=== PATIENT | male | born 1975 | race Caucasian/White ===

== ENCOUNTER 2016-11-06 15:52 | Emergency (ER) | payer OTHER ==
[~2016-11-06] VITALS: Ht 172.7 cm; Wt 130.0 kg
[~2016-11-06 15:52] MED LIST: ARIP1TAB12; BACL10TA; BUPR150XL PO; DICL1GEL; FENT50DI T-DERMAL; HALO10 PO; HYDR-3535 PO; IBUP800T23 PO; IPRAAER IN; IPRAAER NEB; LORA1TAB PO; MONT10 PO; NIAC250C6 PO; PIOG15TA9 PO; PRAV20 PO; ST J PO; TOPA50TA6; TRAZ150T75 PO; VITA500015 PO
[2016-11-06 15:53] VITALS: BP 123/71; PULSE 92; RESP 15; TEMP 98.4; O2SAT 98
--- NOTE | 2016-11-06 16:01 | PD ---
Physical Exam Time Seen by Provider: 15:59 Narrative 41 y/o male presents with 1.5 weeks lower back gamble. Self-reports hx of " bulging discs." Denies recent injury. Vital signs reviewed. Seen at triage desk. Awaiting bed placement. Data Data Last Documented VS Vital Signs Date Time Temp Pulse Resp B/P Pulse Ox O2 Delivery O2 Flow Rate FiO2 11/06/16 15:53 98.4 92 15 123/71 98 MDM Medical Record Reviewed: Yes Supervised Visit with BARBARA: Madi Conteh Nov 06, 2016 16:00
[2016-11-06] MEDS ORDERED: ARIP1TAB5 PO (17:25)
[2016-11-06] MEDS ORDERED: HALO5P (17:25)
[2016-11-06] MEDS ORDERED: METF500T PO (17:25)
[2016-11-06] MEDS ORDERED: BUPR150CR PO (17:25)
[2016-11-06] MEDS ORDERED: ORPHENADRINE INJ 60 MG/2 ML AMP IM ONE (17:45)
[2016-11-06] MEDS ORDERED: KETOROLAC TROMETHAMINE 60 MG/2 ML (IM) VIAL IM ONE (17:45)
[2016-11-06] MEDS ORDERED: ACETAMINOPHEN/HYDROcodone 325 MG/7.5 MG TAB PO ONE (17:45)
--- NOTE | 2016-11-06 17:57 | PD ---
HPI Chief Complaint: Back/ Neck Pain or Injury Time Seen by Provider: 17:54 Travel History International Travel<30 days: No Contact w/Intl Traveler<30days: No Traveled to known affect area: No History of Present Illness HPI 41 YO M with PMH of herniated lumbar disks presents to the ED for evaluation with 3 day history of low back pain, radiating to the left buttock and coursing along the lateral aspect of the left leg to the knee. Patient denies numbness, tingling, weakness, limitations to range of motion of the extremities. He denies saddle anesthesia or incontinence. He states that the back pain is his "normal pain" but the sciatic component is new. Patient was under the care of Dr. Kearney, pain management but dismissed from his practice per note that the patient provides. PFSH Past Medical History Bipolar Disorder: Yes Depression: Yes High Cholesterol: Yes COPD: Yes Diabetes: Yes Patient Takes Glucophage: Yes Diminished Hearing: No GERD: Yes Hypertension: Yes Psychiatric: Yes (BIPOLAR AFFECTIVE DISORDER) Reproductive: Yes (SLEEP APNEA) Respiratory: Yes (COPD) Schizophrenia: Yes Sleep Apnea: Yes Tetanus Vaccination: < 5 Years Influenza Vaccination: Yes Past Surgical History Surgical History: No Previous Surgery Oral Surgery: Yes Social History Alcohol Use: Yes (OCCAS. BEER) Tobacco Use: Yes (4 cigars daily) Substance Use: No Allergies-Medications (Allergen,Severity, Reaction): Coded Allergies: No Known Allergies (Unverified , 11/06/16) Reported Meds & Prescriptions Reported Meds & Active Scripts Active Flexeril (Cyclobenzaprine HCl) 10 Mg Tab 10 Mg PO TID Ibuprofen 800 Mg Tab 800 Mg PO Q8H Reported Haldol Inj (Haloperidol Lactate) 5 Mg/Ml Inj 10 Mg Metformin (Metformin HCl) 500 Mg Tab 500 Mg PO DAILY With a meal Wellbutrin SR 12 HR (Bupropion HCl) 150 Mg Tab 150 Mg PO Q12HR Abilify (Aripiprazole) 10 Mg Tab 10 Mg PO DAILY Review of Systems Except as stated in HPI: all other systems reviewed are Neg Physical Exam Narrative GENERAL: Well-nourished, well-developed obese white male in no acute distress. SKIN: Focused skin assessment warm/dry. HEAD: Normocephalic. EYES: No scleral icterus. No injection or drainage. NECK: Supple, trachea midline. No JVD or lymphadenopathy. CARDIOVASCULAR: Regular rate and rhythm without murmurs, gallops, or rubs. RESPIRATORY: Breath sounds equal bilaterally. No accessory muscle use. GASTROINTESTINAL: Abdomen soft, non-tender, nondistended. MUSCULOSKELETAL: No cyanosis, or edema. 5/5 strength of dorsiflexion, plantar flexion, hip flexion in bilateral lower extremities. Straight leg raise positive on the left. BACK: No obvious deformity. No CVA tenderness. ++ Tenderness to palpation of the paraspinal musculature in the left lumbar area, continuing to the sciatic notch. ++ Mild midline tenderness to palpation in the lumbar spine. Data Data Last Documented VS Vital Signs Date Time Temp Pulse Resp B/P Pulse Ox O2 Delivery O2 Flow Rate FiO2 11/06/16 15:53 98.4 92 15 123/71 98 Orders Ketorolac Inj (Toradol Inj) (11/06/16 17:45) Orphenadrine Inj (Norflex Inj) (11/06/16 17:45) Acetamin-Hydrocod 325-7.5 Mg ([place] 7.5 (11/06/16 17:45) MDM Medical Decision Making Medical Screen Exam Complete: Yes Emergency Medical Condition: Yes Differential Diagnosis acute on chronic back pain versus sciatica versus musculoskeletal pain versus muscle strain versus drug seeking behavior versus other Narrative Course 41 YO M with PMH of herniated lumbar disks presents to the ED for evaluation with 3 day history of low back pain, radiating to the left buttock and coursing along the lateral aspect of the left leg to the knee. Patient denies numbness, tingling, weakness, limitations to range of motion of the extremities. He denies saddle anesthesia or incontinence. He states that the back pain is his "normal pain" but the sciatic component is new. Patient was under the care of Dr. Kearney, pain management but dismissed from his practice per note that the patient provides. Vitals reviewed. Physical exam reveals an obese white male in no acute distress. There is mild tenderness to palpation in the midline of the low lumbar area as well as the left-sided paraspinal musculature which extends to the sciatic notch. No strength deficits in the lower extremities. Neurovascularly intact. Patient was administered IM Toradol and Norflex and a by mouth 7.5 Lortab. Review of the ORCSE reveals that the patient was receiving medications from multiple providers until 10/05. He calls me back in the room to repeatedly requests narcotic pain medication prescription. I explained to the patient that I would not be providing any narcotic pain prescriptions today and he should seek treatment from his outpatient providers. He is stable and discharged home. Diagnosis Primary Impression: Chronic low back pain Qualified Code: M54.42 - Chronic midline low back pain with left-sided sciatica Additional Impression: Left sided sciatica Referrals: Neurologist Pain Management Patient Instructions: Acute Low Back Pain (ED), General Instructions, Sciatica (ED) Additional Instructions: Rest, hydrate Return to normal, gentle activity as tolerated. A mixture of rest and activity is best for back pain. Take medications as prescribed. Do not drive while taking muscle relaxants. Follow-up with pain management or neurology. Return to the ED for any urgent or emergent medical condition. Med/Other Pt SpecificInfo: Prescription(s) given Scripts Cyclobenzaprine (Flexeril)10 Mg Tab10 Mg PO TID #21 TAB Ref 0 Prov:Naun Mcneil MD 11/06/16 Ibuprofen 800 Mg [id number] Mg PO Q8H #21 TAB Ref 0 Prov:Naun Mcneil MD 11/06/16 Disposition: 01 DISCHARGE HOME Condition: Stable Nichelle Fontana Nov 06, 2016 17:57
[2016-11-06] MEDS ORDERED: IBUP800T23 PO (18:15)
[2016-11-06] MEDS ORDERED: CYCL1TAB29 PO (18:15)
== END 2016-11-06 18:33 | disposition home or self-care (01) ==
LOC: NEPK 15:52
DX: M54.42 Lumbago with sciatica, left side (principal); G89.29 Other chronic pain; E11.9 Type 2 diabetes mellitus without complications; I10 Essential (primary) hypertension; E78.00 Pure hypercholesterolemia, unspecified; G47.30 Sleep apnea, unspecified; Z72.0 Tobacco use; Z79.84 Long term (current) use of oral hypoglycemic drugs; Z87.39 Personal history of other diseases of the musculoskeletal system and connective tissue; Z86.59 Personal history of other mental and behavioral disorders; Z87.09 Personal history of other diseases of the respiratory system; Z87.19 Personal history of other diseases of the digestive system
CPT/HCPCS: 96372; 99284; J1885; J2360

== ENCOUNTER 2016-11-12 17:17 | Emergency (ER) | payer OTHER ==
[~2016-11-12] VITALS: Ht 172.7 cm; Wt 132.0 kg
[~2016-11-12 17:17] MED LIST changes: -ARIP1TAB12; +ARIP1TAB5 PO; -BACL10TA; +BUPR150CR PO; -BUPR150XL PO; +CYCL1TAB29 PO; -DICL1GEL; -FENT50DI T-DERMAL; -HALO10 PO; +HALO5P; -HYDR-3535 PO; -IPRAAER IN; -IPRAAER NEB; -LORA1TAB PO; +METF500T PO; -MONT10 PO; -NIAC250C6 PO; -PIOG15TA9 PO; -PRAV20 PO; -ST J PO; -TOPA50TA6; -TRAZ150T75 PO; -VITA500015 PO
[2016-11-12 17:23] VITALS: BP 118/67; PULSE 96; RESP 20; TEMP 98.6; O2SAT 97
[2016-11-12] MEDS ORDERED: LIDO1PAD52 TOPICAL (17:54)
[2016-11-12] MEDS ORDERED: CYCL5TAB PO (17:54)
[2016-11-12] MEDS ORDERED: IBUP800T23 PO (17:54)
--- NOTE | 2016-11-12 18:00 | PD ---
HPI Chief Complaint: Musculoskeletal Complaint Time Seen by Provider: 17:30 Travel History International Travel<30 days: No Contact w/Intl Traveler<30days: No Traveled to known affect area: No History of Present Illness HPI 41-year-old male with history of chronic low back pain presents to the emergency room for evaluation of the same. He denies any new trauma or injury. Patient has had chronic low back pain for the past 5 years from a bulging disc. States he recently stopped following with his pain management physician, Dr. Kearney. 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 Pain is radiating down the left lower extremity. Patient came to the emergency room one week ago for the same and was given prescription for Flexeril and ibuprofen. He has not followed up with anyone. States he is out of his Flexeril. Denies upper or lower extremity paresthesias, saddle anesthesia, loss of bowel or bladder control, weight loss, fever, chills, night sweats, and IV drug use. History of diabetes. PFSH Past Medical History Bipolar Disorder: Yes Depression: Yes High Cholesterol: Yes COPD: Yes Diabetes: Yes (type 2) Patient Takes Glucophage: Yes Diminished Hearing: No GERD: Yes Hypertension: Yes Psychiatric: Yes (BIPOLAR AFFECTIVE DISORDER) Reproductive: Yes (SLEEP APNEA) Respiratory: Yes (COPD) Schizophrenia: Yes Sleep Apnea: Yes Tetanus Vaccination: < 5 Years Influenza Vaccination: Yes ?: Not Past Surgical History Oral Surgery: Yes Social History Alcohol Use: Yes (OCCAS. BEER) Tobacco Use: Yes (4 cigars daily) Substance Use: No Allergies-Medications (Allergen,Severity, Reaction): Coded Allergies: No Known Allergies (Unverified , 11/12/16) Reported Meds & Prescriptions Reported Meds & Active Scripts Active Lidocaine Patch 12 HR (Lidocaine) 5 % Patch 1 Patch TOPICAL DAILY PRN Remove patch after 12 hours Flexeril (Cyclobenzaprine HCl) 5 Mg Tab 5 Mg PO TID Ibuprofen 800 Mg Tab 800 Mg PO Q8H Reported Haldol Inj (Haloperidol Lactate) 5 Mg/Ml Inj 10 Mg Metformin (Metformin HCl) 500 Mg Tab 500 Mg PO DAILY With a meal Wellbutrin SR 12 HR (Bupropion HCl) 150 Mg Tab 150 Mg PO Q12HR Abilify (Aripiprazole) 10 Mg Tab 10 Mg PO DAILY Review of Systems Except as stated in HPI: all other systems reviewed are Neg Physical Exam Narrative GENERAL: Well-nourished, well-developed male in no acute distress. Afebrile. Ambulatory. SKIN: Focused skin assessment warm/dry. No erythema or ecchymosis. HEAD: Normocephalic. EYES: No scleral icterus. No injection or drainage. NECK: Supple, trachea midline. No JVD or lymphadenopathy. CARDIOVASCULAR: Regular rate and rhythm without murmurs, gallops, or rubs. RESPIRATORY: Breath sounds equal bilaterally. No accessory muscle use. BACK: Nontender without obvious deformity. No CVA tenderness. 2+ patellar and Achilles reflexes are equal bilaterally. Data Data Last Documented VS Vital Signs Date Time Temp Pulse Resp B/P Pulse Ox O2 Delivery O2 Flow Rate FiO2 11/12/16 17:23 98.6 96 20 118/67 97 MDM Medical Decision Making Medical Screen Exam Complete: Yes Emergency Medical Condition: Yes Medical Record Reviewed: Yes Differential Diagnosis Chronic low back pain, sciatica, muscle spasm Narrative Course 41-year-old male with history of chronic low back pain presents to the emergency room for evaluation of the same. Patient bent over 1 week ago to lift something off the ground and developed worsening symptoms. No focal neurological deficits. No midline tenderness. No red flag symptoms. No indication for emergent imaging at this time. Patient was informed it is against emergency room policy to prescribe narcotic pain medications for chronic back pain. He was instructed to follow up with his primary care physician for further to pain management. He will be discharged with prescriptions for ibuprofen, Flexeril, and lidocaine patches. Told to return for worsening symptoms. He understands and agrees to plan. Diagnosis Primary Impression: Chronic low back pain Qualified Code: M54.42 - Chronic left-sided low back pain with left-sided sciatica Referrals: Primary Care Physician Patient Instructions: Chronic Back Pain (ED), General Instructions Additional Instructions: Rest and drink plenty of fluids. Take Flexeril as directed, as needed for pain. Take ibuprofen with food as directed, as needed for pain. Apply lidocaine patches as directed. Follow-up with a primary care physician. Return to the emergency room for worsening symptoms. Med/Other Pt SpecificInfo: Prescription(s) given Scripts Lidocaine Patch 12 HR 5 % Patch1 Patch TOPICAL DAILY PRN (PAIN) #1 BOX Ref 0 Remove patch after 12 hours Prov:Faizan Mays MD 11/12/16 Cyclobenzaprine (Flexeril)5 Mg Tab5 Mg PO TID #20 TAB Ref 0 Prov:Fazian Mays MD 11/12/16 Ibuprofen 800 Mg [id number] Mg PO Q8H #21 TAB Ref 0 Prov:Faizan Mays MD 11/12/16 Disposition: 01 DISCHARGE HOME Condition: Stable Madison Coffman Nov 12, 2016 18:00
== END 2016-11-12 18:08 | disposition home or self-care (01) ==
LOC: PHED 17:17
DX: M54.42 Lumbago with sciatica, left side (principal); Z72.0 Tobacco use
CPT/HCPCS: 99283

== ENCOUNTER 2016-12-21 10:57 | Emergency (ER) | payer OTHER ==
[~2016-12-21] VITALS: Ht 172.7 cm; Wt 140.0 kg
[~2016-12-21 10:57] MED LIST changes: -CYCL1TAB29 PO; +CYCL5TAB PO; +LIDO1PAD52 TOPICAL
[2016-12-21 11:02] VITALS: BP 117/70; PULSE 100; RESP 20; TEMP 97.8; O2SAT 98
[2016-12-21] MEDS ORDERED: NAPR500 PO (11:18)
[2016-12-21] MEDS ORDERED: CYCL1TAB29 PO (11:18)
--- NOTE | 2016-12-21 11:21 | PD ---
HPI Chief Complaint: Back/ Neck Pain or Injury Time Seen by Provider: 11:16 Travel History International Travel<30 days: No Contact w/Intl Traveler<30days: No Traveled to known affect area: No History of Present Illness HPI Patient comes in complaining of left low back pain began 2 days ago after lifting heavy furniture. Pain radiates into his left hip. Patient did taking ibuprofen with minimal relief. Pain is worse with certain movement. Denies any numbness or tingling, trauma, loss or change in bladder, abdominal pain, or IV drug abuse. Severity mild. PFSH Past Medical History Bipolar Disorder: Yes Depression: Yes High Cholesterol: Yes COPD: Yes Diabetes: Yes (type 2) Diminished Hearing: No GERD: Yes Hypertension: Yes Psychiatric: Yes (BIPOLAR AFFECTIVE DISORDER) Reproductive: Yes (SLEEP APNEA) Respiratory: Yes (COPD) Schizophrenia: Yes Sleep Apnea: Yes Past Surgical History Oral Surgery: Yes Social History Alcohol Use: Yes (OCCAS. BEER) Tobacco Use: Yes (4 cigars daily) Substance Use: No Allergies-Medications (Allergen,Severity, Reaction): Coded Allergies: No Known Allergies (Unverified , 11/12/16) Reported Meds & Prescriptions Reported Meds & Active Scripts Active Naprosyn (Naproxen) 500 Mg Tab 500 Mg PO Q12HR Flexeril (Cyclobenzaprine HCl) 10 Mg Tab 10 Mg PO Q8HR PRN Lidocaine Patch 12 HR (Lidocaine) 5 % Patch 1 Patch TOPICAL DAILY PRN Remove patch after 12 hours Flexeril (Cyclobenzaprine HCl) 5 Mg Tab 5 Mg PO TID Ibuprofen 800 Mg Tab 800 Mg PO Q8H Reported Haldol Inj (Haloperidol Lactate) 5 Mg/Ml Inj 10 Mg Metformin (Metformin HCl) 500 Mg Tab 500 Mg PO DAILY With a meal Wellbutrin SR 12 HR (Bupropion HCl) 150 Mg Tab 150 Mg PO Q12HR Abilify (Aripiprazole) 10 Mg Tab 10 Mg PO DAILY Review of Systems Except as stated in HPI: all other systems reviewed are Neg Physical Exam Narrative GENERAL: Well-developed, overly nourished, in no acute distress, and non-ill appearing. SKIN: Focused skin assessment warm and dry. HEAD: Atraumatic. Normocephalic. EYES: Pupils equal and round. EOMI. No scleral icterus. No injection or drainage. ENT: No nasal bleeding or discharge. Mucous membranes pink and moist. NECK: Trachea midline. Supple. No nuclear rigidity. RESPIRATORY: No accessory muscle use. No respiratory distress. MUSCULOSKELETAL: No obvious deformities. No clubbing. No cyanosis. No edema. Full range of motion. No tenderness or crepitus over Midline of the Lumbar Spine. Patient Reports Tenderness to Palpation near Left SI Joint. Straight Leg Test Negative Bilaterally. NEUROLOGICAL: Awake and alert. No obvious cranial nerve deficits. Motor grossly within normal limits. Normal speech. PSYCHIATRIC: Appropriate mood and affect; insight and judgment normal. Data Data Last Documented VS Vital Signs Date Time Temp Pulse Resp B/P (MAP) Pulse Ox O2 Delivery O2 Flow Rate FiO2 12/21/16 11:02 97.8 100 20 117/70 (86) 98 Room Air [facility] Medical Decision Making Medical Screen Exam Complete: Yes Emergency Medical Condition: Yes Differential Diagnosis Fracture, strain, contusion, other Narrative Course The patient presented complaining of back pain. There was no history of recent fall or blunt trauma. However, history elicited activity likely causing muscular strain and injury. There was no evidence to support genitourinary etiology. There is also no evidence to suggest vascular pathology such as AAA dissection. No fevers or other evidence to suspect infectious processes, abscess , osteomyelitis etc. The patients neurological exam is normal with normal motor and sensory. There is no saddle paresthesias reported and no bowel or bladder incontinence or retention. I suspect the pain is mechanical in nature. Clinical suspicion, plan of care and management was discussed with the patient. The patient was instructed to follow up with their health care provider. The patient was also instructed to return if the pain worsened, changed, or developed weakness or bowel or bladder trouble. The patient agreed with plan. Patient in no obvious distress upon re-evaluation. Patient was asked if they wanted to speak to my attending, which the patient did not wish to do at this time. Any questions/concerns in reference to patient diagnosis/condition discussed and clarified prior to patient's discharge. Reinforced sheer importance of close follow up with patient's primary physician or primary care clinic. Instructed patient to return to ED immediately, if symptoms return/ worsen. Pt showed understanding of above instructions. Further instructions and recommendations were detailed in discharge paperwork. Pt ambulated without difficulty out of ED at discharge. Diagnosis Primary Impression: Low back strain Qualified Codes: S39.012A - Strain of muscle, fascia and tendon of lower back , initial encounter Referrals: Ibrahima Eubanks MD Patient Instructions: General Instructions, Low Back Strain (ED), Lower Back Exercises (ED) Additional Instructions: Follow-up with your primary care physician and/or orthopedics next week for reevaluation. Take all medication as prescribed. Return to the emergency department if symptoms get worse. Med/Other Pt SpecificInfo: Prescription(s) given Scripts Naproxen (Naprosyn) 500 Mg Tab 500 MG PO Q12HR, #60 TAB 0 Refills Prov: Camilo Stuart MD 12/21/16 Cyclobenzaprine (Flexeril) 10 Mg Tab 10 MG PO Q8HR Y for MUSCLE PAIN, #15 TAB 0 Refills Prov: Camilo Stuart MD 12/21/16 Disposition: 01 DISCHARGE HOME Condition: Stable Carlos Chan Dec 21, 2016 11:20
== END 2016-12-21 16:04 | disposition home or self-care (01) ==
LOC: NETRI 10:57 → EDTENT 16:04
DX: S39.012A Strain of muscle, fascia and tendon of lower back, initial encounter (principal); F31.9 Bipolar disorder, unspecified; E78.00 Pure hypercholesterolemia, unspecified; J44.9 Chronic obstructive pulmonary disease, unspecified; E11.9 Type 2 diabetes mellitus without complications; K21.9 Gastro-esophageal reflux disease without esophagitis; I10 Essential (primary) hypertension; F20.9 Schizophrenia, unspecified; X50.0XXA Overexertion from strenuous movement or load, initial encounter
CPT/HCPCS: 99283

== ENCOUNTER 2016-12-25 07:34 | Emergency (ER) | payer OTHER ==
[~2016-12-25] VITALS: Ht 172.7 cm; Wt 138.0 kg
[~2016-12-25 07:34] MED LIST changes: +CYCL1TAB29 PO; +NAPR500 PO
[2016-12-25 07:36] VITALS: BP 136/86; PULSE 113; RESP 24; TEMP 97.8; O2SAT 98
[2016-12-25] MEDS ORDERED: ONDANSETRON HCL 4 MG/2 ML VIAL IV PUSH ONE (08:00)
[2016-12-25] MEDS ORDERED: MORPHINE SULFATE 4 MG/ML INJ IV PUSH ONE (08:00)
[2016-12-25] MEDS ORDERED: DEXAMETHASONE SOD PHOS 20 MG/5 ML VIAL IV PUSH ONE (08:00)
--- NOTE | 2016-12-25 08:41 | PD ---
HPI . Low back pain Chief Complaint: Back/ Neck Pain or Injury Time Seen by Provider: 07:54 Travel History International Travel<30 days: No Contact w/Intl Traveler<30days: No Traveled to known affect area: No History of Present Illness HPI This patient presents with the chief complaint of low back pain. Onset of symptoms was on 12/20 when he lifted a heavy, saw the couch. Pain is exacerbated by movement. No relieving factors. Pain rated 10/10. It is constant and aching and located in the left low back. Pain has been unrelieved by Naprosyn and Flexeril which were prescribed when he was seen here on 12/21. As his initial presentation, he reported no paresthesias. He now states that both feet are numb. The numbness is exacerbated by standing. He has no perineal anesthesia. No bowel or bladder incontinence or retention. No fever. PFSH Past Medical History Bipolar Disorder: Yes Depression: Yes High Cholesterol: Yes COPD: Yes Diabetes: Yes (type 2) Patient Takes Glucophage: Yes Diminished Hearing: No GERD: Yes Hypertension: Yes Psychiatric: Yes (BIPOLAR AFFECTIVE DISORDER) Reproductive: Yes (SLEEP APNEA) Respiratory: Yes (COPD) Schizophrenia: Yes Sleep Apnea: Yes Past Surgical History Oral Surgery: Yes Social History Alcohol Use: Yes (OCCAS. BEER) Tobacco Use: Yes (4 cigars daily) Substance Use: No Allergies-Medications (Allergen,Severity, Reaction): Coded Allergies: No Known Allergies (Unverified , 12/25/16) Reported Meds & Prescriptions Reported Meds & Active Scripts Active Naprosyn (Naproxen) 500 Mg Tab 500 Mg PO Q12HR Flexeril (Cyclobenzaprine HCl) 10 Mg Tab 10 Mg PO Q8HR PRN Flexeril (Cyclobenzaprine HCl) 5 Mg Tab 5 Mg PO TID Ibuprofen 800 Mg Tab 800 Mg PO Q8H Reported Haldol Inj (Haloperidol Lactate) 5 Mg/Ml Inj 10 Mg Metformin (Metformin HCl) 500 Mg Tab 500 Mg PO DAILY With a meal Wellbutrin SR 12 HR (Bupropion HCl) 150 Mg Tab 150 Mg PO Q12HR Abilify (Aripiprazole) 10 Mg Tab 10 Mg PO DAILY Review of Systems Except as stated in HPI: all other systems reviewed are Neg General / Constitutional: No: Fever, Chills Musculoskeletal: Positive: Pain (left low back pain) Neurologic: Positive: Paresthesia, No: Weakness, Focal Abnormalities, Incontinence Physical Exam Narrative GENERAL: Patient is sitting on the edge of the stretcher in no acute distress. He looks comfortable. He does not have a grimace on his face. SKIN: warm/dry. No rashes noted. No bruises or abrasions in the back. HEAD: Normocephalic. Atraumatic. EYES: Pupils equal and round. No scleral icterus. No injection or drainage. NECK: Trachea midline. Full range of motion without pain.. CARDIOVASCULAR: Regular rate and rhythm. RESPIRATORY: Nonlabored respirations. MUSCULOSKELETAL: No obvious deformities. Tender in the left SI joint area. Straight leg raise on the left reproduces the left low back pain. It does not cause any radicular symptoms. Right straight leg raise is negative. NEUROLOGICAL: Awake and alert. No obvious cranial nerve deficits. Motor grossly within normal limits. Normal speech. His left patellar reflex is diminished compared to the right. PSYCHIATRIC: Appropriate mood and affect; insight and judgment normal. Data Data Last Documented VS Vital Signs Date Time Temp Pulse Resp B/P (MAP) Pulse Ox O2 Delivery O2 Flow Rate FiO2 12/25/16 07:59 20 12/25/16 07:36 97.8 113 136/86 (103) 98 Room Air Orders Orders Mri L Spine W/O Contrast (12/25/16 08:00) ^ Saline Lock (12/25/16 08:00) Dexamethasone Inj (Decadron Inj) (12/25/16 08:00) Morphine Inj (Morphine Inj) (12/25/16 08:00) Ondansetron Inj (Zofran Inj) (12/25/16 08:00) MDM Medical Decision Making Medical Screen Exam Complete: Yes Emergency Medical Condition: Yes Medical Record Reviewed: Yes (patient was seen here on 12/21 for same. He had no imaging studies done at that time.) Differential Diagnosis Differential diagnosis includes but is not limited to muscular low back pain, DDD, spinal stenosis, epidural abscess, sciatica, kidney infection or stone. Narrative Course Patient presents complaining with left low back pain. He is also complaining with paresthesias of his toes. Since he had no imaging studies done when he was seen here on 12/21, I have ordered an MRI. However, I suspect that his symptoms are muscular. In the meantime, he is being treated with IV morphine, Zofran and Decadron. The patient reports that he has a job interview that he cannot miss. He will sign out AMA. Diagnosis Primary Impression: Low back pain Qualified Codes: M54.5 - Low back pain Disposition: 07 AGAINST MEDICAL ADVICE Dodie Erickson MD Dec 25, 2016 08:41
[2016-12-25 09:33] VITALS: BP 133/81
[2016-12-25] MEDS ORDERED: LIDO1PAD52 TOPICAL (14:36)
== END 2016-12-25 09:35 | disposition left against medical advice (07) ==
LOC: NEPC 07:34
DX: M54.5 Low back pain (principal); R20.0 Anesthesia of skin; E11.9 Type 2 diabetes mellitus without complications; I10 Essential (primary) hypertension; E78.00 Pure hypercholesterolemia, unspecified; G47.30 Sleep apnea, unspecified; X50.0XXA Overexertion from strenuous movement or load, initial encounter; Z53.29 Procedure and treatment not carried out because of patient's decision for other reasons; Z72.0 Tobacco use; Z79.84 Long term (current) use of oral hypoglycemic drugs; Z86.59 Personal history of other mental and behavioral disorders; Z87.09 Personal history of other diseases of the respiratory system; Z87.19 Personal history of other diseases of the digestive system
CPT/HCPCS: 96374; 96375; 99284; J1100; J2270; J2405

== ENCOUNTER 2016-12-25 11:46 | Emergency (ER) | payer OTHER ==
[~2016-12-25] VITALS: Ht 172.7 cm; Wt 135.0 kg
[2016-12-25 11:48] VITALS: BP 138/85; PULSE 90; RESP 20; TEMP 98; O2SAT 95
--- NOTE | 2016-12-25 12:41 | PD ---
HPI Chief Complaint: Back/ Neck Pain or Injury Time Seen by Provider: 12:30 Travel History International Travel<30 days: No Contact w/Intl Traveler<30days: No Traveled to known affect area: No History of Present Illness HPI 41-year-old male returns for reevaluation of lower back pain. The patient initially injured his lower back by lifting a couch on December 20. Since then he has had persistent lower back pain, aching, constant, worse with movement. He has since developed some paresthesias in his feet as well as the posterior left leg.. He was seen here for reevaluation this morning for an MRI of the lumbar spine was to be performed because of the paresthesias in the feet however he left ama. He now returns for reevaluation. He has been using Flexeril and naproxen at home which has helped some with his pain. He has no other complaints at this time. PFSH Past Medical History Bipolar Disorder: Yes Depression: Yes High Cholesterol: Yes COPD: Yes Diabetes: Yes (type 2, METFORMIN) Diminished Hearing: No GERD: Yes Hypertension: Yes Psychiatric: Yes (BIPOLAR AFFECTIVE DISORDER) Reproductive: Yes (SLEEP APNEA) Respiratory: Yes (COPD) Schizophrenia: Yes Sleep Apnea: Yes Past Surgical History Oral Surgery: Yes Social History Alcohol Use: Yes (OCCAS. BEER) Tobacco Use: Yes (4 cigars daily) Substance Use: No Allergies-Medications (Allergen,Severity, Reaction): Coded Allergies: No Known Allergies (Unverified , 12/25/16) Reported Meds & Prescriptions Reported Meds & Active Scripts Active Lidocaine Patch 12 HR (Lidocaine) 5 % Patch 1 Patch TOPICAL DAILY PRN Remove patch after 12 hours Naprosyn (Naproxen) 500 Mg Tab 500 Mg PO Q12HR Flexeril (Cyclobenzaprine HCl) 10 Mg Tab 10 Mg PO Q8HR PRN Flexeril (Cyclobenzaprine HCl) 5 Mg Tab 5 Mg PO TID Ibuprofen 800 Mg Tab 800 Mg PO Q8H Reported Haldol Inj (Haloperidol Lactate) 5 Mg/Ml Inj 10 Mg Metformin (Metformin HCl) 500 Mg Tab 500 Mg PO DAILY With a meal Wellbutrin SR 12 HR (Bupropion HCl) 150 Mg Tab 150 Mg PO Q12HR Abilify (Aripiprazole) 10 Mg Tab 10 Mg PO DAILY Review of Systems Except as stated in HPI: all other systems reviewed are Neg Physical Exam Narrative GENERAL: Well-developed well-nourished male in no acute distress ambulatory in the ED. SKIN: Warm and dry. HEAD: Atraumatic. Normocephalic. EYES: Pupils equal and round. No scleral icterus. No injection or drainage. ENT: No nasal bleeding or discharge. Mucous membranes pink and moist. NECK: Trachea midline. No JVD. CARDIOVASCULAR: Regular rate and rhythm. No murmur appreciated. RESPIRATORY: No accessory muscle use. Clear to auscultation. Breath sounds equal bilaterally. GASTROINTESTINAL: Abdomen soft, non-tender, nondistended. Hepatic and splenic margins not palpable. MUSCULOSKELETAL: No obvious deformities. 5 out of 5 muscle strength in flexion , leg flexion and extension, dorsi and plantar flexion bilaterally. NEUROLOGICAL: Awake and alert. No obvious cranial nerve deficits. Motor grossly within normal limits. Normal speech. No ankle clonus, 2+ patellar reflexes, 1+ Achilles tendon reflex bilaterally. PSYCHIATRIC: Appropriate mood and affect; insight and judgment normal. Data Data Last Documented VS Vital Signs Date Time Temp Pulse Resp B/P (MAP) Pulse Ox O2 Delivery O2 Flow Rate FiO2 12/25/16 12:51 92 18 131/76 (94) 94 12/25/16 11:48 98.0 Room Air Orders Orders Mri L Spine W/O Contrast (12/25/16 ) [facility] Medical Decision Making Medical Screen Exam Complete: Yes Emergency Medical Condition: Yes Medical Record Reviewed: Yes Differential Diagnosis Herniated nucleus pulposus, lumbar strain, lumbar spasm, compression fracture, spinal stenosis, piriformis syndrome, cauda equina syndrome Narrative Course 41-year-old male who developed lower back pain 5 days ago after lifting a heavy couch. He has since developed some paresthesias in the feet and posterior left leg. He was seen this morning where an MRI of the lumbar spine was ordered however he had to leave AMA and he now returns to complete that study. MRI of lumbar spine was performed revealing: CONCLUSION: Mild desiccation L2-3 and L4-5 disc. Negative for focal disc herniation. The patient was given a copy of the radiology read. He is currently taking naproxen and Flexeril for pain. He will be given a prescription for Lidoderm patch to use in conjunction with his other medications. Diagnosis Primary Impression: Lumbar strain Qualified Codes: S39.012A - Strain of muscle, fascia and tendon of lower back , initial encounter Departure Forms: Tests/Procedures, Work Release Enter return to work date: Dec 28, 2016 Additional Instructions: Continue naproxen, Flexeril as prescribed. Lidoderm patches as needed. Avoid heavy lifting or strenuous activity. Follow-up with primary care physician in 2 weeks. Return for any emergent medical conditions. Med/Other Pt SpecificInfo: Prescription(s) given Scripts Lidocaine Patch 12 HR (Lidocaine Patch 12 HR) 5 % Patch 1 PATCH TOPICAL DAILY Y for PAIN, #1 BOX 1 Refill Remove patch after 12 hours Prov: Dodie Erickson MD 12/25/16 Disposition: 01 DISCHARGE HOME Condition: Stable Madi Vallejo Dec 25, 2016 12:41
[2016-12-25 12:51] VITALS: BP 131/76; PULSE 92; RESP 18; O2SAT 94
--- NOTE | 2016-12-25 14:27 | RADRPT ---
EXAM DATE/TIME: 12/25/2016 13:40 [facility] COMPARISON: No previous studies available for comparison. INDICATIONS : HNP. Pt felt back pop after moving couch. MEDICAL HISTORY : Hypertension. Diabetes mellitus type 2. Hypercholesterolemia. SURGICAL HISTORY : Oral surgery. ENCOUNTER: Initial ACUITY: 2 day PAIN SCORE: 5/10 LOCATION: L-spine TECHNIQUE: Multiplanar multisequence MRI of the lumbar spine was performed without contrast. FINDINGS: The most caudal appearing lumbar vertebra is numbered as L5. VERTEBRAE: Homogeneous signal. Normal alignment. CONUS: Normal level and configuration. T12-L1: The thecal sac has a normal diameter. No evidence of disc bulge or protrusion. The neural foramina are patent bilaterally. L1-L2: The thecal sac has a normal diameter. No evidence of disc bulge or protrusion. The neural foramina are patent bilaterally. L2-L3: Mild desiccation without focal herniation. L3-L4: The thecal sac has a normal diameter. No evidence of disc bulge or protrusion. The neural foramina are patent bilaterally. L4-L5: Mild desiccation without focal herniation. L5-S1: The thecal sac has a normal diameter. No evidence of disc bulge or protrusion. The neural foramina are patent bilaterally. CONCLUSION: Mild desiccation L2-3 and L4-5 disc. Negative for focal disc herniation. Kelvin Fontanez MD FACR on December 25, 2016 at 14:25 Board Certified Radiologist. This report was verified electronically.
[2016-12-25] MEDS ORDERED: LIDO1PAD52 TOPICAL (14:36)
== END 2016-12-25 15:43 | disposition home or self-care (01) ==
LOC: NEPC 11:46
DX: S39.012A Strain of muscle, fascia and tendon of lower back, initial encounter (principal); E11.9 Type 2 diabetes mellitus without complications; I10 Essential (primary) hypertension; E78.00 Pure hypercholesterolemia, unspecified; G47.30 Sleep apnea, unspecified; X50.0XXA Overexertion from strenuous movement or load, initial encounter; Z72.0 Tobacco use; Z79.84 Long term (current) use of oral hypoglycemic drugs; Z86.59 Personal history of other mental and behavioral disorders; Z87.09 Personal history of other diseases of the respiratory system; Z87.19 Personal history of other diseases of the digestive system
CPT/HCPCS: 72148; 96374; 96375; 99284; J1100; J2270; J2405

== ENCOUNTER 2017-09-10 08:55 | Emergency (ER) | payer OTHER, MEDICAID ==
[~2017-09-10] VITALS: Ht 172.7 cm; Wt 141.0 kg
[~2017-09-10 08:55] MED LIST changes: +ABIL10TA8 PO; -ARIP1TAB5 PO; +CYCL10TA PO; -CYCL1TAB29 PO; +IBUP1TAB7 PO; -IBUP800T23 PO
[2017-09-10 09:20] VITALS: BP 142/78; PULSE 92; RESP 18; TEMP 97; O2SAT 97
--- NOTE | 2017-09-10 09:56 | PD ---
HPI Chief Complaint: Medical Clearance Time Seen by Provider: 09:36 Travel History International Travel<30 days: No Contact w/Intl Traveler<30days: No Traveled to known affect area: No History of Present Illness HPI 42-year-old male presents to the emergency department requesting detox. He has been using heroin, narcotic pills, cocaine, crack cocaine, mollies and has been abusing drugs for the past 25 years and last used 2 days ago. He says he does not want to go to [facility] because they put him on the mental health side and he does not want mental health, he wants detox. He denies IV drug use. Says he is having a headache, nausea, vomiting, fidgety, shaking. Denies fevers. Denies chest pain, shortness of breath. Reports that he has been having left upper quadrant abdominal pain for the past week. Says he has history of pancreatitis and something wrong with his gallbladder. Denies suicidal or homicidal ideations. Denies auditory or visual hallucinations. Has not taken any medications or trying treatments to alleviate symptoms. Symptoms are moderate to severe in severity. Duration chronic. Onset unknown. No known relieving or aggravating factors. Primary care provider is Dr. Calvillo. No known allergies. History of diabetes mellitus and hypertension and was taken off his medications because he was told that he does not need them anymore. Has no other medical complaints. No other modifying factors or associated signs and symptoms. PFSH Past Medical History Bipolar Disorder: Yes Depression: Yes Cardiovascular Problems: Yes (HTN) High Cholesterol: Yes COPD: Yes Diabetes: Yes Diminished Hearing: No GERD: Yes Hypertension: Yes Psychiatric: Yes (BIPOLAR AFFECTIVE DISORDER) Reproductive: Yes (SLEEP APNEA) Respiratory: Yes (COPD) Schizophrenia: Yes Sleep Apnea: Yes Past Surgical History Oral Surgery: Yes Social History Alcohol Use: Yes Tobacco Use: Yes (4 cigars daily) Substance Use: No Allergies-Medications (Allergen,Severity, Reaction): Coded Allergies: No Known Allergies (Unverified Adverse Reaction, Unknown, 09/10/17) Reported Meds & Prescriptions Reported Meds & Active Scripts Active Lidocaine Patch 12 HR (Lidocaine) 5 % Patch 1 Patch TOPICAL DAILY PRN Remove patch after 12 hours Naprosyn (Naproxen) 500 Mg Tab 500 Mg PO Q12HR Flexeril (Cyclobenzaprine HCl) 10 Mg Tab 10 Mg PO Q8HR PRN Flexeril (Cyclobenzaprine HCl) 5 Mg Tab 5 Mg PO TID Ibuprofen 800 Mg Tab 800 Mg PO Q8H Reported Haldol Inj (Haloperidol Lactate) 5 Mg/Ml Inj 10 Mg Metformin (Metformin HCl) 500 Mg Tab 500 Mg PO DAILY With a meal Wellbutrin SR 12 HR (Bupropion HCl) 150 Mg Tab 150 Mg PO Q12HR Abilify (Aripiprazole) 10 Mg Tab 10 Mg PO DAILY Review of Systems Except as stated in HPI: all other systems reviewed are Neg Physical Exam Narrative GENERAL: Well-nourished, well-developed male patient, in no acute distress; afebrile SKIN: Warm and dry. HEAD: Atraumatic. Normocephalic. EYES: Pupils equal and round. No scleral icterus. No injection or drainage. ENT: Mucosa pink and moist. Airway patent. NECK: Trachea midline. CARDIOVASCULAR: Regular rate and rhythm. No murmur appreciated. RESPIRATORY: No accessory muscle use. Clear to auscultation. Breath sounds equal bilaterally. GASTROINTESTINAL: Obese. Abdomen soft, tenderness on palpation to left upper quadrant, nondistended. Hepatic and splenic margins not palpable. Bowel sounds are active 4 quadrants. Nonrigid. No guarding. MUSCULOSKELETAL: No obvious deformities. No clubbing. No cyanosis. No edema. NEUROLOGICAL: Awake and alert. Oriented 3. No obvious cranial nerve deficits. Motor grossly within normal limits. Normal speech. PSYCHIATRIC: Appropriate mood and affect; insight and judgment normal. Data Data Last Documented VS Vital Signs Date Time Temp Pulse Resp B/P (MAP) Pulse Ox O2 Delivery O2 Flow Rate FiO2 09/10/17 09:20 97.0 92 18 142/78 (99) 97 MDM Medical Decision Making Medical Screen Exam Complete: Yes Emergency Medical Condition: Yes Medical Record Reviewed: Yes Differential Diagnosis Polysubstance abuse, pancreatitis, withdrawal from drug, medical clearance Narrative Course 42-year-old male requesting detox for polysubstance abuse. Denies IV drug use. Patient does have left upper quadrant abdominal pain. He reports history of pancreatitis and something wrong with his gallbladder. He has had abdominal pain for the past week. He does report nausea and vomiting. He is afebrile and nontoxic-appearing. I discussed that we are not a detox center, but I would like to rule out pancreatitis. The patient says that if I cant help him with detox, he does not want anything else done. Patient walked out and I did tell him he is considered to be leaving AGAINST MEDICAL ADVICE. AMA: The risks of leaving against medical advice without further evaluation treatment were discussed with the patient. These risks include cardiac dysfunction, cardiac dysrhythmia, possible heart attack, possible stroke or . The patient indicated understanding of these risks and appeared to have the capacity to make this decision. Diagnosis Primary Impression: Left against medical advice Disposition: 07 AGAINST MEDICAL ADVICE Molly Fontenot Sep 10, 2017 09:56
== END 2017-09-10 10:50 | disposition left against medical advice (07) ==
LOC: NEPD 08:55
DX: R51 Headache (principal)
CPT/HCPCS: 99281